=== PATIENT | male | born 1970 | race Caucasian/White ===

== ENCOUNTER 2017-11-30 15:43 | Emergency (ER) | payer OTHER ==
[2017-11-30 16:55] VITALS: BP 122/73
--- NOTE | 2017-11-30 17:44 | RAD ---
INDICATION: Right rib pain COMPARISON: None TECHNIQUE: Multiple views of the ribs were obtained. FINDINGS: Bones: There is no evidence of acute rib fracture. LUNGS: The lungs are clear. There is no pneumothorax. Pleural spaces: There is no evidence of hemothorax. Other: None IMPRESSION: NEGATIVE EXAMINATION.
--- NOTE | 2017-11-30 18:15 | UC ---
UC General HPI - HPI Summary HPI Summary: 11/26/17, PT COUGHED HARD AND FELT A POP IN HIS R RIBS. HE NOTES THE AREA TO BE SORE AND A LITTLE SWOLLEN. NO SOB, FEVER. DENIES ABDOMINAL PAIN. - History of Current Complaint Hx Obtained From: Patient, Family/Tentering Machine Off Bearer Onset/Duration: Sudden Onset Timing: Constant Pain Intensity: 4 Aggravating: MOVEMENT AND COUGH Alleviating: BY SPLINTING Associated Signs & Symptoms: Negative: Abdominal Pain, Anticoagulation Therapy, Fever, Hematemesis, SOB, Wheezing <Alie Alas - Last Filed: 11/30/17 18:20> <Bella Young - Last Filed: 12/01/17 07:03> - History of Current Complaint Chief Complaint: UCGeneralIllness Stated Complaint: SIDE PAIN Time Seen by Provider: 11/30/17 17:20 - Allergy/Home Medications Allergies/Adverse Reactions: Allergies Allergy/AdvReac Type Severity Reaction Status Date / Time No Known Allergies Allergy Verified 11/30/17 16:55 PMH/Surg Hx/FS Hx/Imm Hx - Additional Past Medical History Additional PMH: Healthy Previously Healthy: Yes - Surgical History Surgical History: None - Family History Known Family History: Positive: None Negative: Diabetes - Social History Occupation: Employed Full-time Lives: With Family Alcohol Use: None Substance Use Type: None Smoking Status (MU): Heavy Every Day Tobacco Smoker Type: Cigarettes Amount Used/How Often: 1 1/2 ppd <Alie Alas - Last Filed: 11/30/17 18:20> Review of Systems Constitutional: Negative Skin: Negative Eyes: Negative ENT: Negative Respiratory: Other - pain R ribs Cardiovascular: Negative Gastrointestinal: Negative Genitourinary: Negative Motor: Negative Neurovascular: Negative Musculoskeletal: Negative Neurological: Negative Psychological: Negative Is Patient Immunocompromised?: No All Other Systems Reviewed And Are Negative: Yes <Alie Alas - Last Filed: 11/30/17 18:20> Physical Exam Triage Information Reviewed: Yes Appearance: Well-Appearing Vital Signs: Initial Vital Signs Temp 97.4 F 11/30/17 16:47 Pulse 65 11/30/17 16:47 Resp 16 11/30/17 16:47 BP 122/73 11/30/17 16:47 Pulse Ox 98 11/30/17 16:47 Vital Signs Reviewed: Yes Eye Exam: Normal ENT: Positive: Normal ENT inspection Neck: Positive: Supple, Nontender, No Lymphadenopathy Respiratory: Positive: Normal breath sounds, No respiratory distress, Other: - R side of anterior lateral chest with mild swelling and tenderness but no instability. Cardiovascular: Positive: RRR, No Murmur Abdomen Description: Positive: Nontender, No Organomegaly, Soft Bowel Sounds: Positive: Present Neurological: Positive: Alert Psychological: Positive: Normal Response To Family, Age Appropriate Behavior Skin Exam: Normal Skin: Negative: rashes <Alie Alas - Last Filed: 11/30/17 18:20> Vital Signs: Initial Vital Signs Temp 97.4 F 11/30/17 16:47 Pulse 65 11/30/17 16:47 Resp 16 11/30/17 16:47 BP 122/73 11/30/17 16:47 Pulse Ox 98 11/30/17 16:47 <Bella Young - Last Filed: 12/01/17 07:03> Diagnostics - Radiology No standard instances Xray Interpretation: No Acute Changes Radiology Interpretation Completed By: Radiologist <Alie Alas - Last Filed: 11/30/17 18:20> Course/Dx - Course Course Of Treatment: no fx's or ptx. exam c/w chest wall mm strain. will tx nsaid and close f/u - Differential Dx - Multi-Symptom Provider Diagnoses: R chestwall strain/pain <Alie Alas - Last Filed: 11/30/17 18:20> Discharge <Alie Alas - Last Filed: 11/30/17 18:20> <Bella Young - Last Filed: 12/01/17 07:03> - Discharge Plan Condition: Stable Disposition: HOME Prescriptions: Ibuprofen TAB* [Motrin TAB* 800 MG] 800 mg PO Q8H 5 Days #15 tab Patient Education Materials: Muscle Strain (DC), Chest Wall Pain (ED) Referrals: MARTA Baum [Primary Care Provider] - 5 Days Additional Instructions: SPLINT AND DEEP BREATHE/COUGH 4 X'S DAILY AND NEEDED. Attestation Statement User Type: Provider - I was available for consult. This patient was seen by the ANA. The patient was not presented to, seen by, or examined by me. Curtis <Bella Young - Last Filed: 12/01/17 07:03>
== END 2017-11-30 18:25 | disposition home or self-care (01) ==
LOC: UCCORT 15:43
DX: S29.011A Strain of muscle and tendon of front wall of thorax, initial encounter (principal); X50.0XXA Overexertion from strenuous movement or load, initial encounter; Y93.89 Activity, other specified; Y92.9 Unspecified place or not applicable; F17.210 Nicotine dependence, cigarettes, uncomplicated
CPT/HCPCS: 99212; G0463

== ENCOUNTER 2018-01-17 02:20 | Observation (INO) | payer OTHER ==
[2018-01-17] MEDS ORDERED: HYDROmorphone INJ* 2 MG/ML CARPUJECT SYRINGE IV SLOW PU ONE ×2 (03:03→05:08)
[2018-01-17] MEDS ORDERED: Metoclopramide IV* 5 MG/ML 2 ML VIAL IV SLOW PU ONE (03:04)
[2018-01-17 03:22] LABS: Hematocrit 43 % (42-52); Mean Corpuscular HGB Conc 33 g/dl (31-36); Mean Corpuscular Hemoglobin 28 pg (27-31); Mean Corpuscular Volume 86 fL (80-94); Mean Platelet Volume 8.5 um3 (7.4-10.4); Platelet Count 340 10^3/ul (150-450); Red Blood Count 4.95 10^6/ul (4.0-5.4); Red Cell Distribution Width 14 % (10.5-15); White Blood Count 21.1 10^3/ul (3.5-10.8)
[2018-01-17 03:29] LABS: ABS Basophils 0.1 10^3/ul (0-0.2); ABS Eosinophils 0.8 10^3/ul (0-0.6); ABS Lymphocytes 2.1 10^3/ul (1.0-4.8); ABS Monocytes 1.8 10^3/ul (0-0.8); ABS Neutrophils 16.4 10^3/ul (1.5-7.7)
[2018-01-17 03:30] LABS: INR 1.16 (0.77-1.02)
[2018-01-17 03:37] LABS: EGFR Non-African American 92.8 (>60)
[2018-01-17] MEDS ORDERED: Iohexol 300* (CONTRAST) 10 ML SDV IV ONE (03:39)
[2018-01-17 03:50] LABS: ABS Nucleated RBC 0 10^3/ul; Eosinophil % 3.7 % (0-6); Nucleated Red Blood Cells % 0
[2018-01-17] MEDS ORDERED: NS 0.9% 1000 ML* 1,000 ML IV ONE (04:52)
--- NOTE | 2018-01-17 07:06 | RAD ---
HISTORY: Abdominal pain, liver cancer COMPARISONS: None TECHNIQUE: Multiple contiguous axial CT scans were obtained of the chest, abdomen, and pelvis after the administration of intravenous contrast. Coronal and sagittal multiplanar reformations are submitted for review.. FINDINGS: CHEST NECK AND THYROID: The lower neck and thyroid are unremarkable. CHEST WALL: There is no lower cervical, axillary, or supraclavicular lymphadenopathy by size criteria. HEART AND PERICARDIUM: The heart is unremarkable. AORTA AND PULMONARY VASCULATURE: There is an aberrant right subclavian artery. MEDIASTINUM: There are right paratracheal subcarinal lymph nodes measuring up to 1.2 cm in short axis. DENNYS: There is no hilar lymphadenopathy by size criteria. AIRWAY AND ESOPHAGUS: The airway is unremarkable, without endobronchial filling defect. The esophagus is grossly normal. LUNG PARENCHYMA: There are multiple pulmonary parenchymal nodules measuring up to 0.4 cm in size. PLEURA: No pleural abnormalities are noted. BONES AND SOFT TISSUES: There is an osteolytic lesion of the T11 vertebral body. There is no loss of vertebral body height. There is no appreciable epidural extension of tumor. There is fracture of the fourth rib on the right ABDOMEN/PELVIS: LIVER: There are multiple low-attenuation hepatic parenchymal lesions diffusely throughout both lobes. There is a confluent lesion measuring up to 8.8 cm in size of the right lobe of liver. BILE DUCTS: There is no intrahepatic or extrahepatic biliary dilatation. GALLBLADDER: The gallbladder is incompletely distended PANCREAS: The pancreas is normal, without mass or ductal dilatation. SPLEEN: Normal in size and appearance. UPPER GI TRACT: Evaluation of the gastrointestinal tract is limited by incomplete gastric distention. The upper GI tract is unremarkable. SMALL BOWEL & MESENTERY: The small bowel is normal in contour, course, and caliber. There is no obstruction or dilatation. COLON: The colon is normal in contour, course, caliber. There is no pericolonic inflammatory change. ADRENALS: Normal bilaterally. KIDNEYS: The kidneys are normal in shape, size, contour, and axis. There is no hydronephrosis or nephrolithiasis. BLADDER: The bladder is smooth in contour. PELVIC ORGANS: The prostate is diffusely enlarged. The seminal vesicles are symmetric. AORTA: The aorta is normal. IVC: Unremarkable LYMPH NODES: There is a centrally necrotic portacaval lymph node measuring 2.3 cm in short axis. There are multiple periaortic and aortocaval lymph nodes measuring less than 1 cm in short axis. There is a 1.9 cm short axis right iliac chain lymph node ABDOMINAL WALL: There is no evidence for abdominal wall hernia. BONES AND SOFT TISSUES: There is an osteolytic lesion of L5 with minimal depression of the superior endplate. There are scattered small osteolytic lesions of the lumbar spine. There is a sclerotic lesion of the left acetabulum. OTHER: None IMPRESSION: 1. THERE ARE MULTIPLE HEPATIC PARENCHYMAL LESIONS CONSISTENT WITH NEOPLASM. THERE IS ASSOCIATED ABDOMINAL LYMPHADENOPATHY CONSISTENT WITH METASTATIC DISEASE. 2. THERE IS MEDIASTINAL LYMPHADENOPATHY, ALSO CONCERNING FOR METASTATIC DISEASE. 3. THERE ARE MULTIPLE LYTIC BONE LESIONS, INCLUDING OF L5 WITH MILD LOSS OF VERTEBRAL BODY HEIGHT PATHOLOGIC COMPRESSION FRACTURE. THERE IS NO OSSEOUS RETROPULSION. 4. THERE IS A RIGHT FOURTH RIB FRACTURE. THE DIFFERENTIAL INCLUDES PATHOLOGY FRACTURE. 5. THERE ARE MULTIPLE SMALL LUNG NODULES, CONCERNING FOR METASTATIC DISEASE GIVEN THE HISTORY OF KIDNEY.
[2018-01-17] MEDS ORDERED: Senna TAB PO PRN (07:41)
[2018-01-17] MEDS ORDERED: Magnesium Hydroxide LIQ* 30 ML UDC PO PRN (07:41)
[2018-01-17] MEDS ORDERED: Morphine INJ* 4 MG/ML 1 ML SYRINGE (NEW SYRINGE VERSION) IV PRN (07:41)
[2018-01-17] MEDS ORDERED: fentaNYL PATCH 12 MCG/HR TRANSDERM SCH (08:00)
[2018-01-17] MEDS ORDERED: HYDROmorphone INJ* 2 MG/ML CARPUJECT SYRINGE IV SLOW PU PRN (08:02)
[2018-01-17] MEDS ORDERED: PROCHLORPERAZINE INJ 5 MG/ML 2 ML VIAL IV PRN (08:06)
[2018-01-17] MEDS: Docusate CAP* 100 MG PO SCH ×2 (09:40→20:16)
[2018-01-17] MEDS: Enoxaparin(*) 40 MG/0.4 ML SYR SUBCUT SCH (09:41)
[2018-01-17] MEDS: Polyethylene Glycol 3350* 17 GM PACKET PO SCH ×2 (09:42→20:16)
[2018-01-17] MEDS: HYDROmorphone INJ* 2 MG/ML CARPUJECT SYRINGE IV SLOW PU PRN ×4 (10:11→20:16)
[2018-01-17] MEDS: NS 0.9% 1000 ML* 1,000 ML IV SCH ×2 (10:11→20:16)
--- NOTE | 2018-01-17 10:15 | HP ---
CC: Dr. Mcgregor * HISTORY AND PHYSICAL: DATE OF ADMISSION: 01/17/18 PRIMARY CARE PROVIDER: Dr. Mcgregor. CHIEF COMPLAINT: Diffuse pain. HISTORY OF PRESENT ILLNESS: Mr. Fay is a 47-year-old male, who has had a complicated last 1-1/2 months. The patient states that in late November, he slipped and felt that he pulled something in his groin. He went to urgent care where he was diagnosed with a muscle strain. He then developed pain across his lower right ribs after having a coughing episode. He questioned whether or not he tore a muscle. A couple of weeks after his urgent care visit which appears to be on 11/30/17, he continued to have severe diffuse pain. At that time, he saw Dr. Mcgregor where he also complained of testicular pain. At that point, he got ultrasound of the testicles, which reportedly was okay. The patient represented to Dr. Mcgregor's office and again continue to complain of diffuse pain including the abdomen. A right upper quadrant ultrasound was obtained and revealed a large mass within the liver. He was then referred to the emergency room at [facility] where he underwent a CT scan, which revealed liver masses, lymphadenopathy, and lytic lesions in his lumbar spine. He was also ordered a liver biopsy. This was performed. The patient states that the mass in the liver was felt to be metastatic and not the primary. 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 This was not performed where he was sent for a CT of the chest. The patient states overall he feels that he was bounced around at [facility] and was not happy overall with the care he was receiving there. He at one point was recommended to be admitted to the [facility]; however, he did not feel comfortable with this and therefore did not get admitted. The patient now presents to [facility] today due to diffuse severe pain and inability to ambulate without taking large amounts of morphine prior to getting up and to establish care with Oncology here. PAST MEDICAL HISTORY: None. PAST SURGICAL HISTORY: None. MEDICATIONS: 1. Morphine IR 15 mg p.o. q.4 hours p.r.n. pain (the patient states he has been taking more than what is prescribed). 2. Prednisone 20 mg p.o. daily (the patient states he took this one time as his primary indicated he could take if he wanted). 3. Colace 100 mg p.o. daily. ALLERGIES: None. FAMILY HISTORY: Mom is living. She is 70 and healthy, though she did have a hysterectomy for what he says is abnormal uterine bleeding. Dad is also living , he is 70 and has had hyperparathyroidism, status post parathyroidectomy. The patient also has 1 younger brother who has a history of hyperparathyroidism. SOCIAL HISTORY: The patient is a current smoker of one and half packs per day. He states he has been smoking for the last 23 years. He denies any alcohol use. He does admit to occasional marijuana use. He works at [employer]. He states his last job was approximately a month and half ago. He is . He has 5 children. He indicates that his , Alysha Fay would be his healthcare proxy. REVIEW OF SYSTEMS: The patient denies any fevers, though does state that he will develop sweats after taking the morphine and in addition wakes up with drenching night sweats. He states his appetite has been poor, though some times when he does feel hungry, he tries to eat and he just cannot. He believes he lost 15 pounds in the last 3 to 4 weeks. He admits to musculoskeletal chest pain. He notes that there is a small lump just to the left of the mid sternum and when this is touched, he has shooting pain across the left side of his chest. He denies any palpitations. He denies edema. He denies any cough or shortness of breath more than usual. He does admit to nausea. He has continuous abdominal pain, it has been going on for the last couple of months, but it just progressively getting worse. He does state that he is constipated and that his last bowel movement was approximately 2 weeks ago. He denies any hematuria. He does admit to dysuria. He admits generalized weakness really related to pain. No sudden changes in vision. No dysphagia. He hurts all over. He has no rashes. He does state that he is becoming depressed about the degree of pain that he is having. PHYSICAL EXAMINATION GENERAL: The patient is a well-developed middle-aged male, seen lying in a stretcher, in no acute distress. VITAL SIGNS: Blood pressure 118/72, pulse 79, respirations 16, temp 98, O2 sat 98% on room air. HEENT: Pupils are equal and round. Extraocular muscles are intact. Oropharynx is clear. Oral mucosa is dry. There is no submandibular or cervical adenopathy. There is a small firm left supraclavicular lymph node noted. Thyroid is not enlarged. No thyroid nodule is noted. PULMONARY: Lungs are clear to auscultation anteriorly and at the lateral bases. CARDIAC: Normal S1, S2. Regular rate and rhythm. I do not appreciate any murmurs. There is no lower extremity edema. ABDOMEN: Bowel sounds present. Abdomen is soft, nontender, nondistended. I questioned mild hepatomegaly. MUSCULOSKELETAL: There is no cyanosis or clubbing of the digits. Range of motion is limited due to pain. SKIN: Warm and dry. There are no rashes. NEUROLOGIC: Cranial nerves II through XII are grossly intact. Sensation is intact to light touch throughout. Strength again is limited due to pain. PSYCH: The patient is alert. He is oriented x3. Affect appears appropriate. DIAGNOSTIC STUDIES/LAB DATA: WBC 21.1, hemoglobin 14.0, hematocrit 43, platelets 340. INR 1.16. Sodium 138, potassium 4.0, chloride 95, CO2 36, BUN 23, creatinine 0.88, glucose 141, lactic acid 1.4, calcium 9.9, magnesium 2.4. Bilirubin 0.5, AST 29, ALT 41, alk phos 248. CRP 80.36. Albumin 3.8. Amylase 13 and lipase less than 10. CT chest, abdomen, and pelvis, there are multiple hepatic parenchymal lesions consistent with neoplasm. There is associated abdominal lymphadenopathy consistent with metastatic disease. There is mediastinal lymphadenopathy also concerning for metastatic disease. There are multiple lytic bone lesions including of L5 with mild loss of vertebral body height. Pathologic compression fracture is likely. There is no osseous retropulsion. There is a right 4th rib fracture. The differential includes a pathologic fracture. There are multiple small lung nodules concerning for metastatic disease given the history. ASSESSMENT AND PLAN: Mr. Fay is an unfortunate 47-year-old male, who over the last 1-1/2 months has noted diffuse pain all over with supraclavicular adenopathy, multiple liver lesions, adenopathy within the chest and abdomen and lytic bone lesions consistent with metastatic disease of unclear primary, who now presents to the emergency room with complaints of severe diffuse pain. 1. Pain. At this point, our goal should be to improve pain management for this patient. I will start him on a fentanyl patch 12 mcg per hour. In addition, the patient will have Dilaudid 1 mg IV q.3 hours p.r.n. severe pain. Depending on how he does with this regimen, we can consider pain management consult if this does not work for him. 2. Diffusely metastatic cancer. The patient is in the midst of a workup for the primary of this cancer. Again, he was not happy with the care he was receiving in [facility] and therefore states he would like to establish with Oncology here in [place]. The patient will be seen today by Dr. Rebolledo whom I have already consulted. We will await further recommendations of any additional testing that may be needed at this time. 3. Leukocytosis. The patient does have a significant leukocytosis; however, he is not giving any history of infection other than the sweats, which I think could be attributed to his cancer. For now, we will monitor for other clear signs of infection. Urinalysis has been ordered and should be obtained as he does complain of mild dysuria. 4. DVT prophylaxis. According to the Adult Thrombosis Prophylaxis Risk Factor Assessment Guide, the patient has a total risk factor score of 4, making him high risk. I will start Lovenox 40 mg subcutaneous daily as DVT prophylaxis. 5. Code status is full. TIME SPENT: Sixty-five minutes was spent admitting this patient. [id number]/[facility] #: [id number] MTDD
[2018-01-17] MEDS: Ondansetron INJ* 2 MG/ML VIAL IV PRN (14:15)
[2018-01-17] MEDS ORDERED: Ketorolac INJ* 30 MG/ML 1 ML VIAL IV PUSH ONE (17:06)
[2018-01-17] MEDS ORDERED: fentaNYL PATCH 25 MCG/HR TRANSDERM SCH (19:26)
[2018-01-17] MEDS ORDERED: HYDROmorphone INJ* 2 MG/ML CARPUJECT SYRINGE ONE (19:39)
[2018-01-17] MEDS ORDERED: Calcium Carbonate CHEW TAB* 500 MG (TUMS) PO ONE (22:20)
--- NOTE | 2018-01-18 00:24 | CONS ---
CONSULTATION REPORT: DATE OF CONSULT: 01/17/18 REFERRING PHYSICIAN: Dr. Garrett. GI: Dr. Bernardo Mary. REASON FOR CONSULT: Liver lesions. HISTORY OF PRESENT ILLNESS: A 47-year-old male who has a longstanding history of GERD. About a year and a half to 2 years ago he started to develop back pain. He describes pain in the lower back radiating to his groin. It was severe enough that he cut back on how much he was working. 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 In November, he was walking with his and she almost fell. He reached over to balance her and then felt a severe pain in his lower back radiating down to his groin. That started a period of very severe back and abdominal pain that persists to this day. He initially went to see [facility] in [place]. He was sent for an ultrasound of the testicle on the left that was negative. He had followup and was sent for right upper quadrant ultrasound. He went for the test on 12/30/17 and then was called back before making it home from the study and told to have a CT scan done. Because insurance denying CT, he went to the emergency room. CT scan was done in [facility] [facility] and showed multiple liver lesions, the large is approximately 9 cm, there was extensive retroperitoneal lymphadenopathy including a fairly large node, 3 cm just above the head of the pancreas, multiple bone lesions including lumbar, thoracic and pelvic lesions with some loss of vertebral height in the lumbar spine and thoracic vertebral body nearly completely replaced with tumor. There were no lung lesions or nodules. He recently called to the emergency room twice over the last several weeks and had a referral to Dr. Mary who recommended an EGD, which is scheduled for tomorrow. He saw Dr. Turcios, who recommended CT-guided biopsy of the liver and surgical biopsy of the supraclavicular lymph node. CT biopsy of the liver was done. It showed a metastatic carcinoma with an extensive necrosis and markers that were CD7 positive, CAT3 positive and CD20, CDX-2, TTF-1 D2-40, p63, PSA, PSMA, ER/SC negative. Pathologic diagnosis was upper GI primary, but could not rule out urothelial cancer. CK19 and NKX 3.1 were pending at the time of the final report. When he went to see the surgeon for biopsy of his supraclavicular lymph node, he was referred to the emergency room with chest pain. It was asked that he be admitted at that time and he refused and ultimately left against advice. He has had longstanding difficulties with [facility] and he has had family members with bad experiences, so after the pain was increasing over the past several days he came to the [facility] emergency room. He was seen overnight and admitted with pain control and for further evaluation. At home, he was taking morphine 50 mg q.4 hours and Motrin 600 mg a day. In the hospital, he was placed on Dilaudid 2 mg IV q.3 p.r.n. and fentanyl patch 12.5 mcg. PAST MEDICAL HISTORY: Chronic back pain. PAST SURGICAL HISTORY: None. ALLERGIES: None. FAMILY HISTORY: Some blood disease in the family and no early cancers. SOCIAL HISTORY: Lives in [place] and is self-employed. and has 5 daughters, 11 to 22 years old, no grandchildren. Smokes one and one and a half pack of cigarettes per day and does not drink alcohol. REVIEW OF SYSTEMS: General: Tired from being in pain all the time. No fevers or chills. He has lost 15 pounds. HEENT: Negative. Swollen glands over the past year. Chest: He has chest pain over the past day and a half with a small nodule in his anterior chest wall. Cardiac: He feels his heart beating. Respiratory: Negative except for smoking history. GI: Diffuse abdominal pain that kind of stretches across his upper abdomen. He is severely constipated and reports no major bowel movement in the past 2 weeks despite taking multiple [id number] medications, he passes gas and has a small liquid stool every now and then. : He feels full at times, but urinates without difficulty. Musculo-skeletal: Severe back pain. It is difficult for him to move, even to stay on the bed is hard. No axial joint discomfort. Neurologic: Negative. Skin: Negative. PHYSICAL EXAM: Temperature 98.1, heart rate 68, respirations 20, O2 sat 92%, BP 107/72. HEENT: Mucosa moist. No lesions. He has a small left supraclavicular lymph node. Lungs: Clear to auscultation bilaterally. Heart: Regular rate and rhythm . S1 and S2. No murmurs, rubs, or gallops. Heart rate in the 80s. Abdomen: Diffuse distention. I can feel the liver and he does seem to have abdominal fullness. No rebound or guarding. Lymph Nodes: No peripheral lymph nodes except supraclavicular lymph node. Rectal exam with normal tone and empty vault. Extremities: No clubbing, cyanosis, or edema. Neurologic: Nonfocal. Alert and oriented x3 and not a good historian. DIAGNOSTIC STUDIES/LAB DATA: White count 21.1 (took steroids yesterday), hemoglobin 14.1, platelets 240,000. MCV 86. Normal coagulation studies, normal renal function. Glucose 141. Alk phos of 248, bilirubin of 0.5 and otherwise normal LFTs. ASSESSMENT/PLAN: A 47-year-old male with a carcinoma likely of upper GI primary with differential diagnosis including gastroesophageal, cholangiocarcinoma, pancreatic carcinoma, urothelial cancer. Pancreatic and/or cholangiocarcinoma is most likely. He had been scheduled for an EGD tomorrow in [place], but was admitted today for refractory pain. 1. Cancer diagnosis. We will check a CA-125 and CA 19-9 with his a.m. labs tomorrow. We will discuss with GI possibly having EGD at [facility] either during this hospitalization or soon thereafter. If EGD negative then plan MRCP or ERCP. He has an aggressive tumor based on his clinical history and I would like to get him started with chemotherapy as soon as possible, but determining the sepcific cell of origin is relevant to choosing a chemotherapy regimen. 2. Pain control. Increase fentanyl to 25 mcg tonight and then 50 mcg tomorrow , calculated dose conversion from his home morphine to 75 mcg. Continue Dilaudid 2 mg IV q.2 p.r.n. Can go home on po Dilaudid. 3. Constipation. Based on the CT scan and rectal exam, he has got an empty vault, but seems to have lot of stool in the upper large intestine. I changed his lactulose from 30 mg q.8 p.r.n. which he has not been receiving consistently to 30 mg q.8 standing at least for 2 days until he is having a bowel movement. We will change his nausea medicine from Compazine to Reglan. 4. I discussed potential referral to a tertiary center given his young age and the aggressive nature of his tumor. [facility] would be a likely candidate. We will also work on sending to [place] [id number] for his tumor. 5. He has talked about chemotherapy with other providers and says he does not want to have a port placed, that is reasonable and he seems to have good peripheral venous access. None of the initial therapies for pancreatic or cholangiocarcinoma are of significance. 6. I advised him to decrease his smoking from one and a half packs a day to less than a pack per day to start with. I will follow during the hospitalization and have close followup on discharge. [id number]/[facility] #: [id number] SUZAN
[2018-01-18] MEDS: HYDROmorphone INJ* 2 MG/ML CARPUJECT SYRINGE IV SLOW PU PRN ×3 (01:22→07:23)
[2018-01-18 04:36] LABS: Urine Appearance Turbid; Urine Blood Negative (Negative); Urine Color Amber; Urine Ketones Trace (Negative); Urine Protein Negative (Negative); Urine Specific Gravity 1.033 (1.010-1.030); Urine Urobilinogen Positive (Negative)
[2018-01-18] MEDS: NS 0.9% 1000 ML* 1,000 ML IV SCH (04:50)
[2018-01-18] MEDS ORDERED: fentaNYL Patch Check Q Shift 1 NOTE SCH (07:00)
[2018-01-18] MEDS: Ondansetron INJ* 2 MG/ML VIAL IV PRN (07:28)
[2018-01-18] MEDS ORDERED: oxyCODONE TAB* 5 MG TAB PO PRN ×3 (08:13→15:10)
--- NOTE | 2018-01-18 08:16 | PN ---
Subjective Date of Service: 01/18/18 Interval History: Pain control adequate. He had a BM last night. Objective Active Medications: Docusate Sodium (Colace Cap*) 100 mg PO BID [facility] Last Admin: 01/17/18 20:16 Dose: 100 mg Enoxaparin Sodium (Lovenox(*)) 40 mg SUBCUT Q24H [facility] Last Admin: 01/17/18 09:41 Dose: 40 mg Fentanyl (Duragesic Patch 50 Mcg/Hr*) 50 mcg TRANSDERM Q72H [facility] Hydromorphone HCl (Dilaudid Inj*) 2 mg IV SLOW PU Q2H PRN PRN Reason: PAIN Last Admin: 01/18/18 07:23 Dose: 2 mg Sodium Chloride (Ns 0.9% 1000 Ml*) 1,000 mls @ 125 mls/hr IV PER RATE [facility] Last Admin: 01/18/18 04:50 Dose: 125 mls/hr Lactulose (Lactulose*) 30 ml PO TID [facility] Stop: 01/20/18 20:59 Last Admin: 01/17/18 22:18 Dose: 30 ml Magnesium Hydroxide (Milk Of Magnesia Liq*) 30 ml PO Q4H PRN PRN Reason: CONSTIPATION Ondansetron HCl (Zofran Inj*) 4 mg IV Q6H PRN PRN Reason: NAUSEA Last Admin: 01/18/18 07:28 Dose: 4 mg Pharmacy Profile Note (Fentanyl Patch Check Q Shift) 1 note N/A 0700,1900 [facility] Last Admin: 01/18/18 07:30 Dose: 1 note Polyethylene Glycol/Electrolytes (Miralax*) 17 gm PO 0800,2100 [facility] Last Admin: 01/17/18 20:16 Dose: 17 gm Polyethylene Glycol/Electrolytes (Miralax*) 17 gm PO 0800,2100 [facility] Prochlorperazine Edisylate (Compazine Inj*) 10 mg IV Q6H PRN PRN Reason: NAUSEA/VOMITING Senna (Senokot Tab*) 1 tab PO BEDTIME PRN PRN Reason: CONSTIPATION Last Admin: 01/17/18 09:40 Dose: 1 tab Vital Signs - 8 hr 01/18/18 01/18/18 01/18/18 01:22 02:35 02:57 Temperature 98.2 F Pulse Rate 84 Respiratory 20 16 16 Rate Blood Pressure 131/86 (mmHg) O2 Sat by Pulse 95 Oximetry 01/18/18 01/18/18 01/18/18 04:50 06:20 07:23 Temperature Pulse Rate Respiratory 16 15 16 Rate Blood Pressure (mmHg) O2 Sat by Pulse Oximetry Oxygen Devices in Use Now: None Appearance: Alert, supine in bed. In good spirits. Looks comfortable at rest, some diffiuclty turning in bed. Eyes: No Scleral Icterus Abdominal: NL Sounds; No Tenderness; No Distention, No Hepatosplenomegaly, - Lymphatic: - - Firm 3 x 1.5 cm L SC node Extremities: No Edema, No Clubbing, Cyanosis, - Skin: No Rash or Ulcers, No Nodules or Sclerosis, - Neurological: Alert and Oriented x 3, NL Sensation Result Diagrams: 01/17/18 03:11 01/17/18 03:11 Assess/Plan/Problems-Billing Assessment: - Patient Problems (1) Metastatic carcinoma Status: Acute Code(s): C79.9 - SECONDARY MALIGNANT NEOPLASM OF UNSPECIFIED SITE SNOMED Code(s): 278368977 Comment: CA-125 very high. CA 19-9 pending. EGD showed erosive esohagitis, no tumor. Increased fentanyl patch to 75 mcg/hr just befor discharge. PO oxycodone 10 mg tabs 1-[address] q [address] Rebolledo. (2) Tobacco abuse Status: Acute Code(s): Z72.0 - TOBACCO USE SNOMED Code(s): 253273547 Comment: Nicotine patch ordered.
[2018-01-18] MEDS ORDERED: Nicotine PATCH 21 MG/24 HR* PATCH TRANSDERM SCH (08:30)
[2018-01-18] MEDS ORDERED: fentaNYL* 50 MCG/ML 2 ML VIAL (100 MCG VIAL) ONE (09:00)
[2018-01-18] MEDS ORDERED: fentaNYL PATCH 50 MCG/HR TRANSDERM SCH (09:00)
[2018-01-18] MEDS ORDERED: Midazolam* 1 MG/ML 10 ML VIAL (10 MG) ONE (09:00)
[2018-01-18] MEDS ORDERED: D5W 1/2 NS KCl 20 Meq 1000 ML* 1,000 ML IV SCH (09:00)
[2018-01-18] MEDS ORDERED: Metoclopramide TAB* 10 MG PO PRN (09:16)
[2018-01-18] MEDS ORDERED: Pantoprazole IV* 40 MG IV SCH (10:00)
[2018-01-18] MEDS: oxyCODONE TAB* 5 MG TAB PO PRN ×2 (10:39→13:42)
[2018-01-18] MEDS: Docusate CAP* 100 MG PO SCH (10:55)
[2018-01-18] MEDS: Polyethylene Glycol 3350* 17 GM PACKET PO SCH (10:55)
[2018-01-18] MEDS: Enoxaparin(*) 40 MG/0.4 ML SYR SUBCUT SCH (11:05)
--- NOTE | 2018-01-18 11:24 | CONS ---
AMENDED REPORT NOW INCLUDES DATE OF CONSULT - ESIGNED BEFORE ADJUSTMENTS CC: Dr. Froy Rebolledo; Dr. Yaya Mcgregor * GASTROENTEROLOGY CONSULTATION REPORT: DATE OF CONSULT: 01/18/18 REFERRING PHYSICIAN: Dr. Froy Rebolledo. HISTORY OF PRESENT ILLNESS: Thank you for asking me to see Mr. Fay. As you know, he is an unfortunate 47-year-old male who has been having issues with abdominal and back pain over the past year and a half. The patient underwent recent CAT scan in [facility] which showed multiple liver lesions, largest of which measured 9 cm with retroperitoneal lymphadenopathy, large node just above the head of the pancreas and multiple bony lesions. The patient was scheduled to undergo outpatient upper endoscopy today and CT-guided biopsy of the liver. Biopsy of the liver at [facility] revealed metastatic carcinoma and markers most consistent with upper GI primary versus pancreatic or cholangiocarcinoma. The patient has been placed on pain medications here in the hospital including Dilaudid and fentanyl patch. The patient decided to come to [facility] for further care. He has been seen by Dr. Rebolledo in consultation. The patient describes right-sided abdominal pain especially after meals. He also has significant back pain. CA 19-9 is pending. The patient does have a long history of acid reflux symptoms. PAST MEDICAL HISTORY: None. MEDICATIONS: At home, are none. ALLERGIES: No known drug allergies. FAMILY HISTORY: Noncontributory. SOCIAL HISTORY: The patient is . He does smoke. No alcohol abuse. REVIEW OF SYSTEMS: A 10-point review of systems is performed and is otherwise negative. PHYSICAL EXAM: Mr. Fay is a 47-year-old male. Temperature is 98, heart rate of 74, blood pressure 137/75. HEENT Exam: There is no scleral icterus. Heart: Regular rate and rhythm. Lungs are clear. Abdomen is soft. There is some tenderness in the right mid to lower abdomen. Bowel sounds are present. There is no distention. Rectal exam is deferred. Skin is warm and dry. Neuro Exam: Grossly intact. Alert and oriented x3. LABORATORY DATA: Pertinent laboratory studies include a white blood count of 21 , hematocrit of 43. INR of 1. CA 125 of 683. Lipase is normal. Liver function tests are normal with exception of an alkaline phosphatase which is 248. C-reactive protein is 80. Albumin is 3.8. IMPRESSION: Mr. Fay has wide-spread metastatic disease involving the liver , retroperitoneal lymphadenopathy, and bony lesions. Etiology of the metastatic cancer is not clear at this time, but biopsy of the one of the liver lesions did suggest upper gastrointestinal pathology, which would include esophagus, stomach, pancreatic, or cholangiocarcinoma. RECOMMENDATIONS: I have discussed the case with Dr. Rebolledo. Upper endoscopy will take place this morning to rule in or rule out the esophagus and the stomach as the source of metastatic disease. Further recommendations based on the results of that study. [id number]/[facility] #: [id number] MTDD
[2018-01-18 11:34] VITALS: BP 134/79
--- NOTE | 2018-01-18 13:53 | PRO ---
CC: Dr. Yaya Mcgregor; Froy Rebolledo MD GASTROENTEROLOGY PROCEDURE NOTE: DATE OF PROCEDURE: 01/18/18 REFERRING PHYSICIAN: Dr. Froy Rebolledo. PROCEDURE: Esophagogastroduodenoscopy with biopsies. PREOPERATIVE DIAGNOSES: Metastatic cancer of unknown primary with markers of liver biopsy suggestive of upper GI tract pathology for a primary. The patient does have a longstanding history of acid ref lux disease. POSTOPERATIVE DIAGNOSES: 1. Severe erosive esophagitis of the distal esophagus. No mass is noted. The GE junction is at 45 cm. There are some linear ulcers extending proximally. It is unclear as to whether the distal esoph susannah has Cordova's as the proximal and mid esophagus have what appears to be a denuded mucosa. Photo graph obtained. 2. Diffuse gastritis without erosion, mass or ulceration. 3. Mild duodenitis without ulceration. PROCEDURE MEDICATIONS: 1. Versed 7 mg IV. 2. Fentanyl 100 mcg IV. INSTRUMENT: GF-190 Olympus high-definition gastroscope. DESCRIPTION OF PROCEDURE: Informed consent was obtained prior to performing this procedure. The ins trument was introduced into the mouth and passed through the cervical esophagus under direct visualiz ation. The instrument was then advanced down the esophagus. In the proximal and mid esophagus, the lining appeared somewhat denuded and actually was shed with irrigation. In the distal esophagus, at the level of the GE junction, there was severe erosive esophagitis. Because of the denuded appearanc e of the proximal and mid and somewhat distal esophagus, it is unclear as to whether the distal esoph susannah actually had Cordova's. Multiple biopsies were obtained. The scope was then passed through the gastric cardia, fundus, body and the antrum. There was evidence of mild diffuse gastritis without e rosion, ulceration or mass. The scope was passed through the pylorus and duodenal bulb and descendin g duodenum, both of which were normal. The cardia was visualized in a retroflex manner and no abnorm alities were noted. The instrument was withdrawn from the patient. The patient tolerated the proced ure well and there were no complications. RECOMMENDATIONS: I will begin the patient on Protonix 40 mg IV daily. We will set the patient up fo r MRCP for hopeful diagnostic purposes. [id number]/[facility] #: [id number]
--- NOTE | 2018-01-18 14:48 | PN ---
Progress Note - Progress Note Date of Service: 01/18/18 SOAP: Subjective: [This is a 47 yo male with recent dx of metastatic carcinoma of unclear primary , admitted for pain control. Dr Rebolledo saw the patient in consultation yesterday evening. Pathology completed at [facility] was suggestive of upper GI in origin. EGD completed this morning which did not demonstrate presence of a mass. MRCP pending for this afternoon. Patient reports his pain is under much better control this am. 50mcg Fentanyl patch placed, using oxycodone for short acting relief. He had a very large BM overnight. Mild nausea this am.] Objective: [ Docusate Sodium (Colace Cap*) 100 mg PO BID [facility] Last Admin: 01/18/18 10:55 Dose: Not Given Enoxaparin Sodium (Lovenox(*)) 40 mg SUBCUT Q24H [facility] Last Admin: 01/18/18 11:05 Dose: 40 mg Fentanyl (Duragesic Patch 50 Mcg/Hr*) 50 mcg TRANSDERM Q72H [facility] Last Admin: 01/18/18 08:26 Dose: 50 mcg Hydromorphone HCl (Dilaudid Inj*) 2 mg IV SLOW PU Q2H PRN PRN Reason: PAIN Last Admin: 01/18/18 07:23 Dose: 2 mg Potassium Chloride/Dextrose (D5w 1/2 Ns Kcl 20 Meq 1000 Ml*) 1,000 mls @ 100 mls/hr IV PER RATE [facility] Last Admin: 01/18/18 10:29 Dose: 100 mls/hr Lactulose (Lactulose*) 30 ml PO TID [facility] Stop: 01/20/18 20:59 Last Admin: 01/18/18 12:07 Dose: Not Given Magnesium Hydroxide (Milk Of Magnesia Liq*) 30 ml PO Q4H PRN PRN Reason: CONSTIPATION Metoclopramide HCl (Reglan Tab*) 10 mg PO Q8H PRN PRN Reason: NAUSEA Nicotine (Nicotine Patch 21 Mg/24 Hr*) 1 patch TRANSDERM DAILY@0800 [facility] Last Admin: 01/18/18 11:08 Dose: Not Given Omeprazole (Prilosec Cap*) 20 mg PO BID [facility] Ondansetron HCl (Zofran Inj*) 4 mg IV Q6H PRN PRN Reason: NAUSEA Last Admin: 01/18/18 07:28 Dose: 4 mg Oxycodone HCl (Roxycodone Tab*) 5 mg PO Q3H PRN PRN Reason: PAIN - MODERATE TO SEVERE Oxycodone HCl (Roxycodone Tab*) 10 mg PO Q3H PRN PRN Reason: PAIN - SEVERE Last Admin: 01/18/18 13:42 Dose: 10 mg Pharmacy Profile Note (Fentanyl Patch Check Q Shift) 1 note N/A 0700,1900 [facility] Last Admin: 01/18/18 07:30 Dose: 1 note Pharmacy Profile Note (Nicotine Patch Removal Note*) 1 note PATCH OFF 2099 [facility] Polyethylene Glycol/Electrolytes (Miralax*) 17 gm PO 0800,2100 [facility] Last Admin: 01/18/18 10:55 Dose: Not Given Prochlorperazine Edisylate (Compazine Inj*) 10 mg IV Q6H PRN PRN Reason: NAUSEA/VOMITING Senna (Senokot Tab*) 1 tab PO BEDTIME PRN PRN Reason: CONSTIPATION Last Admin: 01/17/18 09:40 Dose: 1 tab Laboratory Results - last 24 hr 01/17/18 01/18/18 22:02 01:25 CA 125 Antigen 683.2 H Urine Color Lian Urine Appearance Turbid Urine pH 5.0 Ur Specific [place] 1.033 H Urine Protein Negative Urine Ketones Trace A Urine Blood Negative Urine Nitrate Negative Urine Bilirubin Negative Urine Urobilinogen Positive A Ur Leukocyte Esterase Negative Urine Glucose Negative Vital Signs: Temp Pulse Resp BP Pulse Ox 97.3 F 75 16 134/79 95 01/18/18 11:35 01/18/18 11:35 01/18/18 13:42 01/18/18 11:35 01/18/18 11:35 Exam: Gen: Well appearing, smiling and very pleasant. Accompanied by his HEENT: MMM CV: RRR, no m/r/g Resp: CTA, no w/c/r Abd: soft, diffuse TTP Ext: no edema Skin: No rashes] Assessment: [47 yo male with new diagnosis of metastatic disease of unclear primary. Pathology suggestive of upper GI source or urothelial, upper GI more likely. EGD did not demonstrate a mass, but demonstrated erosive esophagitis. MRCP pending to help differentiate pancreatic v cholangiocarcinoma.] Plan: [- Recommend PPI for esophagitis noted on EGD - MRCP pending - Cont fentanyl at 50 mcg daily with prn oxycodone - Cont laxatives to avoid further constipation Dispo: Anticipate discharge later today following MRCP now that pain and constipation have been effectively treated. Follow up with Dr Rebolledo scheduled for early next week with plan to initiate treatment shortly. Patient does not want a port placed. Instructed patient to call the office with any questions or concerns.]
--- NOTE | 2018-01-18 15:25 | RAD ---
HISTORY: MRI clearance. COMPARISON: None. FINDINGS: Frontal and lateral views of the orbits. There is no radiopaque foreign body attributable to the orbits. The orbital rims are intact. The sinuses are clear. The zygomatic arches are normal. IMPRESSION: No radiopaque foreign body attributable to the orbits.
[2018-01-18] MEDS ORDERED: fentaNYL PATCH 75 MCG/HR* 75 MCG TRANSDERM SCH (16:00)
--- NOTE | 2018-01-18 16:44 | RAD ---
INDICATION: Metastatic cancer with suspected pancreatic or cholangiocarcinoma. Comparison: January 17, 2018 CT Technique: MYFX [place] 1.5 Heather [id number] with GEM suite. Noncontrast magnetic resonance cholangiopancreatography. Report: Motion artifact limits image quality. Negative for intra or extrahepatic biliary dilatation. No intrinsic lesion within the common bile duct or extrinsic lesion resulting in compression of the duct. Partially decompressed gallbladder. Small volume of pericholecystic fluid is nonspecific given diffuse small volume of perihepatic fluid. Innumerable focal hepatic lesions corresponding with recent CT finding. Enlarged portal caval lymph node measuring up to 2.6 cm as on the prior CT. IMPRESSION: 1. Limited exam due to motion artifact. Negative for biliary dilatation or visualized intrinsic or common bile duct periductal mass lesion. 2. Enlarged portal caval lymph node. 3. Innumerable focal hepatic lesions corresponding with recent CT finding. Consider ultrasound-guided fine-needle aspiration for histopathologic assessment.
[2018-01-18] MEDS ORDERED: Omeprazole CAP* 20 MG PO SCH (17:00)
--- NOTE | 2018-01-18 17:12 | PN ---
"Progress Note - Progress Note Date of Service: 01/18/18 Note: This report was requested by: Masood Song | Reference #: [id number] Others' Prescriptions Patient Name: Jonathan Fay Date: 1970 Address: [address] [place] [address] Sex: Male Rx Written Rx Dispensed Drug Quantity Days Supply Prescriber Name 01/07/2018 01/10/2018 morphine sulfate ir 15 mg tab 90 15 [place] 01/07/2018 01/07/2018 morphine sulfate ir 15 mg tab 21 7 Yaya Mcgregor 01/03/2018 01/03/2018 hydrocodone-acetaminophen 5-325 mg tablet 50 9 [place] vieira Fredis Patient Name: Jonathan Fay Date: 1970 Address: [address] [place] [address] Sex: Male Rx Written Rx Dispensed Drug Quantity Days Supply Prescriber Name 12/30/2017 12/30/2017 hydrocodone-acetaminophen 5-325 mg tablet 28 7 Shonna Harper (JUANA) 12/30/2017 12/30/2017 lorazepam 0.5 mg tablet 15 5 Shonna Harper)"
[2018-01-18] MEDS ORDERED: Polyethylene Glycol 3350* 17 GM PACKET PO SCH (21:00)
[2018-01-18] MEDS ORDERED: Nicotine Patch Removal NOTE PATCH OFF SCH (21:00)
--- NOTE | 2018-01-19 02:07 | DS ---
CC: Viry Ellison MD; Dr. Rebolledo * DISCHARGE SUMMARY: DATE OF ADMISSION: DATE OF DISCHARGE: 01/18/18 HISTORY OF PRESENT ILLNESS: This 47-year-old man presented with extensive pain throughout his body. He was found to have metastatic adenocarcinoma. He had bony and lymph node metastases. He underwent an EGD, which did not show any tumor, but did show erosive esophagitis. He had an MRCP, did not show biliary dilatation or any bile duct or periductal mass lesion. There was an enlarged portacaval lymph node. There were numerable focal hepatic lesions corresponding with recent CT scan finding. The patient had his pain medication titrated. He may need further up with titrations of his pain medication. He was treated for constipation as well. I think he has a good understanding of the need. He used laxatives every day while taking opioids. The patient was seen in consultation by Dr. Rebolledo and will follow up with Dr. Rebolledo in his office on Wednesday to plan a course of chemotherapy. FINAL DIAGNOSES: 1. Metastatic adenocarcinoma with liver, bone and soft tissue metastases. 2. Erosive esophagitis. 3. Tobacco use disorder. DISCHARGE MEDICATIONS: 1. Fentanyl patch 75 mcg per hour change every 3 days. 2. Nicotine patch 21 mg per hour change daily. 3. Omeprazole 20 mg b.i.d. 4. Polyethylene glycol 34 g b.i.d. 5. Oxycodone 10 mg 1 or 2 tablets every 4 hours p.r.n. [id number]/[facility] #: [id number] MTDD
--- NOTE | 2018-02-16 06:01 | ED ---
Homar Kapoor Rebecca, scribed for Juno Burgess MD on 01/17/18 at 0245 . Complex/Multi-Sys Presentation - HPI Summary HPI Summary: Pt is a 47 y/o M who presents to ED c/o acute on chronic diffuse abdominal pain. Pt was given a diagnosis of liver CA on December 30 (about 2.5 weeks ago) after experiencing bloating and abdominal pain. A biopsy was done on January 03 and he has seen an oncologist once thus far with his next appointment tomorrow at 1000. Pain is currently severe, ranked 10/10 and radiates into the back, described as a sharp pain. Has been taking 15 mg morphine sulfate every 4 hours without relief. Additionally c/o nausea. Denies vomiting. Reports his urine is light yellow. PCP is Dr. Mcgregor, oncologist is Dr. Fong. Follow-up care has been through [facility]. - History Of Current Complaint Chief Complaint: EDGeneral Time Seen by Provider: 01/17/18 02:37 Hx Obtained From: Patient Onset/Duration: Still Present Severity Currently: Severe - 10/10 Location: Pain At: - Diffuse abdomen, Radiates To: - Back Character: Sharp Aggravating Factor(s): Nothing Alleviating Factor(s): Nothing Associated Signs And Symptoms: Positive: Nausea, Abdominal Pain. Negative: Vomiting - Allergies/Home Medications Allergies/Adverse Reactions: Allergies Allergy/AdvReac Type Severity Reaction Status Date / Time No Known Allergies Allergy Verified 01/17/18 02:33 Home Medications: Home Medications Docusate Sodium [Dok] 1 tab PO DAILY 01/17/18 [History Confirmed 01/17/18] Morphine TAB (NF) 1 tab PO Q4HR PRN 01/17/18 [History Confirmed 01/17/18] predniSONE TAB* [Deltasone TAB*] 1 tab PO DAILY 01/17/18 [History Confirmed 06/28] PMH/Surg Hx/FS Hx/Imm Hx Endocrine/Hematology History: Denies: Hx Diabetes Cardiovascular History: Denies: Hx Coronary Artery Disease Infectious Disease History: No Infectious Disease History: Denies: Traveled Outside the [place] in Last 30 Days - Family History Known Family History: Negative: Diabetes - Social History Alcohol Use: None Substance Use Type: Reports: None Smoking Status (MU): Heavy Every Day Tobacco Smoker Type: Cigarettes Amount Used/How Often: 1 1/2 ppd Review of Systems Negative: Fever Positive: Abdominal Pain, Nausea. Negative: Vomiting All Other Systems Reviewed And Are Negative: Yes Physical Exam - Summary Physical Exam Summary: VITAL SIGNS: Reviewed. GENERAL: ~Patient is a well-developed and nourished male who is lying comfortable in the stretcher. Patient is not in any acute respiratory distress. HEAD AND FACE: No signs of trauma. No ecchymosis, hematomas or skull depressions. No sinus tenderness. EYES: PERRLA, EOMI x 2, No injected conjunctiva, no nystagmus. EARS: Hearing grossly intact. Ear canals and tympanic membranes are within normal limits. MOUTH: Oropharynx within normal limits. NECK: Supple, trachea is midline, no adenopathy, no JVD, no carotid bruit, no c- spine tenderness, neck with full ROM. CHEST: Symmetric, no tenderness at palpation LUNGS: Clear to auscultation bilaterally. No wheezing or crackles. CVS: Regular rate and rhythm, S1 and S2 present, no murmurs or gallops appreciated. ABDOMEN: Soft, diffusely tender. No signs of distention. No rebound no guarding , and no masses palpated. Bowel sounds are normal. EXTREMITIES: FROM in all major joints, no edema, no cyanosis or clubbing. NEURO: Alert and oriented x 3. No acute neurological deficits. Speech is normal and follows commands. SKIN: Dry and warm Triage Information Reviewed: Yes Vital Signs On Initial Exam: Initial Vitals Temp Pulse Resp BP Pulse Ox 97.6 F 95 20 137/81 97 01/17/18 02:25 01/17/18 02:25 01/17/18 02:25 01/17/18 02:25 01/17/18 02:25 Vital Signs Reviewed: Yes Diagnostics - Vital Signs Vital Signs Temp Pulse Resp BP Pulse Ox 01/17/18 02:25 97.6 F 95 20 137/81 97 - Laboratory Result Diagrams: 01/17/18 03:11 01/17/18 03:11 Lab Statement: Any lab studies that have been ordered have been reviewed, and results considered in the medical decision making process. - CT CT Abd/Pel CT Interpretation Completed By: Radiologist - Multiple liver masses consistent with metastasis with a possible primary liver lesion. Presumed metastatic mediastinal, right hilar, periportal, portacaval, retroperitoneal, and pelvic lymphadenopathy. Multiple bone metastases with possible lumbar pathologic compression fractures, not clearly acute. Acute right fourth rib fracture is possibly pathologic. Questionable tiny lung metastases. ED physician reviewed this radiology report. Pending official report. Complex Multi-Symp Course/Dx Assessment/Plan: Pt is a 47 y/o M who presents to ED c/o acute on chronic diffuse abdominal pain. Pt was given a diagnosis of liver CA on December 30 (about 2.5 weeks ago) after experiencing bloating and abdominal pain. A biopsy was done on January 03 and he has seen an oncologist once thus far with his next appointment tomorrow at 1000. Pain is currently severe, ranked 10/10 and radiates into the back, described as a sharp pain. Has been taking 15 mg morphine sulfate every 4 hours without relief. Additionally c/o nausea. Denies vomiting. Reports his urine is light yellow. PCP is Dr. Mcgregor, oncologist is Dr. Fong. Follow-up care has been through [facility]. CT Abd/Pel findings above. Blood work was done. In the ED course, pt was given Reglan and Toradol. Discused care of pt with Dr. Thurman who accepts pt for admission. Pt will be admitted with Dx of metastatic cancer. He understands and agrees. - Diagnoses Provider Diagnoses: Metastatic cancer - Physician Notifications Discussed Care Of Patient With: Brock Thurman Time Discussed With Above Provider: 05:16 Instructed by Provider To: Other - Pt will be admitted. Discharge - Sign-Out/Discharge Documenting (check all that apply): Discharge - Admitted - Discharge Plan Condition: Fair Disposition: ADMITTED TO [facility] Referrals: Yaya Mcgregor MD [Primary Care Provider] - The documentation as recorded by the Homar espinal Rebecca accurately reflects the service I personally performed and the decisions made by me, Juno Burgess MD.
== END 2018-01-18 17:20 | disposition home or self-care (01) ==
LOC: ED 02:20 → MED 07:41
PROVIDERS: ADMIT Hospitalist; ATTEND Internal Medicine
PROC: 0DB58ZX Excision of Esophagus, Via Natural or Artificial Opening Endoscopic, Diagnostic (ICD-10-PCS; principal; 2018-01-17)
DX: K20.8 Other esophagitis (principal); K22.8 Other specified diseases of esophagus; K22.10 Ulcer of esophagus without bleeding; R59.9 Enlarged lymph nodes, unspecified; C22.7 Other specified carcinomas of liver; C79.51 Secondary malignant neoplasm of bone; C79.89 Secondary malignant neoplasm of other specified sites; D72.829 Elevated white blood cell count, unspecified; M54.5 Low back pain; G89.29 Other chronic pain; K59.00 Constipation, unspecified; K29.70 Gastritis, unspecified, without bleeding; Z72.0 Tobacco use
CPT/HCPCS: 36415; 70030; 71260; 74177; 74181; 76376; 80053; 81003; 82150; 83605; 83690; 83735; 85025; 85060; 85610; 85730; 86140; 86301; 86304; 88305; 88312; 96361; 96374; 96375; 99156; 99157; 99223; 99226; 99233; 99284; A9270-GY; G0378; J1170; J1650; J1885; J2250; J2405; J2765; J3010; Q9967

== ENCOUNTER 2018-01-19 06:18 | Emergency (ER) | payer OTHER ==
--- NOTE | 2018-01-19 07:59 | RAD ---
INDICATION: Left shoulder pain. TECHNIQUE: 4 views of the left shoulder were obtained. FINDINGS: The bones are in normal alignment. There appears to be a fracture of the acromion process which is nondisplaced and not well-defined on this study and likely pathologic. Joint spaces appear maintained. IMPRESSION: FINDINGS SUSPICIOUS FOR A NONDISPLACED PATHOLOGIC FRACTURE OF THE ACROMION PROCESS WHICH IS NOT WELL-DEFINED ON THIS STUDY. RECOMMEND A CT OF THE SHOULDER FOR FURTHER EVALUATION.
--- NOTE | 2018-01-19 09:28 | RAD ---
INDICATION: Left shoulder pain, possible pathologic fracture. COMPARISON: Comparison is made with a prior x-ray study of the left shoulder from January 19, 2018. TECHNIQUE: Contiguous axial sections were obtained of the left shoulder. Images were reconstructed in the sagittal and coronal planes. FINDINGS: There is mild soft tissue swelling adjacent to the acromion process. There is a transverse nondisplaced fracture of the acromion process through a permeative lytic lesion consistent with a pathologic fracture. This correlates with the x-ray finding. No additional lytic osseous lesions are seen. There are several small pulmonary nodules present within the visualized portion of the left lung. There is also a small left lower lobe infiltrate which is unchanged from the prior CT of the chest from January 17, 2018. IMPRESSION: 1. TRANSVERSE NONDISPLACED PATHOLOGIC FRACTURE OF THE ACROMION PROCESS. 2. MULTIPLE SMALL PULMONARY NODULES CONSISTENT WITH METASTATIC DISEASE. 3. SMALL LEFT LOWER LOBE INFILTRATE, UNCHANGED.
[2018-01-19 10:04] VITALS: BP 145/80
--- NOTE | 2018-01-20 11:58 | ED ---
Brian Kapoor Angela, scribed for Miguel Vinson MD on 01/19/18 at 0815 . Upper Extremity Pain - HPI Summary HPI Summary: This pt is a 47 y/o male, accompanied by his , presenting to [facility] c/o left shoulder pain since this morning. Pt states he was attempting to get out of bed this morning when he reached out and hear a loud pop in his left shoulder. He currently rates his pain 3 or 4 out of 10 in severity after oxycodone. His pain is aggravated with movement and alleviated with rest. Pt has been recently diagnosed with liver cancer and is currently being followed up by Dr. Rebolledo, oncologist. Per , pt was admitted to [facility] for severe pain and was discharged yesterday. Pt is currently on 2 oxycodone every 4 hours. - History of Current Complaint Chief Complaint: EDShoulderClavicleInj Stated Complaint: LEFT SHOULDER INJURY Time Seen by Provider: 01/19/18 07:15 Hx Obtained From: Patient, Family/Hemotherapist - Mechanism Of Injury: Other - attempting to get out of bed Onset/Duration: Started Hours Ago, Still Present Timing: Lasting Hours Severity Initially: Severe Severity Currently: Moderate - 3 or 4 out of 10 Pain Location: Shoulder - left Aggravating Factor(s): Movement Alleviating Factor(s): Rest Associated Signs & Symptoms: Negative: Swelling, Fever, Weakness, Numbness/ Tingling, Neck Pain - Allergies/Home Medications Allergies/Adverse Reactions: Allergies Allergy/AdvReac Type Severity Reaction Status Date / Time No Known Allergies Allergy Verified 01/17/18 02:33 PMH/Surg Hx/FS Hx/Imm Hx Endocrine/Hematology History: Denies: Hx Diabetes Cardiovascular History: Denies: Hx Hypertension History: Denies: Hx Renal Disease Sensory History: Denies: Hx Contacts or Glasses, Hx Hearing Aid Opthamlomology History: Denies: Hx Contacts or Glasses - Cancer History Cancer Type, Location and Year: current visit - liver, lymph mets Infectious Disease History: No Infectious Disease History: Denies: Traveled Outside the [place] in Last 30 Days - Family History Known Family History: Negative: Diabetes - Social History Alcohol Use: None Substance Use Type: Reports: Marijuana Substance Use Comment - Amount & Last Used: rarely Smoking Status (MU): Heavy Every Day Tobacco Smoker Type: Cigarettes Amount Used/How Often: 1 1/2 ppd Review of Systems Negative: Fever, Chills Cardiovascular: Negative Respiratory: Negative Gastrointestinal: Negative Musculoskeletal: Other - left shoulder pain Neurological: Negative All Other Systems Reviewed And Are Negative: Yes Physical Exam - Summary Physical Exam Summary: VITAL SIGNS: Reviewed. GENERAL: Patient is a well-developed and nourished male who is lying comfortable in the stretcher. Patient is not in any acute respiratory distress. HEAD AND FACE: No signs of trauma. No ecchymosis, hematomas or skull depressions. No sinus tenderness. EYES: PERRLA, EOMI x 2, No injected conjunctiva, no nystagmus. EARS: Hearing grossly intact. Ear canals and tympanic membranes are within normal limits. MOUTH: Oropharynx within normal limits. NECK: Supple, trachea is midline, no adenopathy, no JVD, no carotid bruit, no c- spine tenderness, neck with full ROM. CHEST: Symmetric, no tenderness at palpation LUNGS: Clear to auscultation bilaterally. No wheezing or crackles. CVS: Regular rate and rhythm, S1 and S2 present, no murmurs or gallops appreciated. ABDOMEN: Soft, non-tender. No signs of distention. No rebound no guarding, and no masses palpated. Bowel sounds are normal. EXTREMITIES: no edema, no cyanosis or clubbing. LUE: Left shoulder tenderness with decreased ROM. No hematoma. No deformity. Good capillary refill. Neurovascular intact. NEURO: Alert and oriented x 3. No acute neurological deficits. Speech is normal and follows commands. SKIN: Dry and warm Triage Information Reviewed: Yes Vital Signs On Initial Exam: Initial Vitals Temp Pulse Resp BP Pulse Ox 96.9 F 86 20 143/84 96 01/19/18 06:19 01/19/18 06:19 01/19/18 06:19 01/19/18 06:19 01/19/18 06:19 Vital Signs Reviewed: Yes Diagnostics - Vital Signs Vital Signs Temp Pulse Resp BP Pulse Ox 01/19/18 06:19 96.9 F 86 20 143/84 96 - Laboratory Lab Statement: Any lab studies that have been ordered have been reviewed, and results considered in the medical decision making process. - Radiology Left shoulder XR Xray Interpretation: Positive (See Comments) - IMPRESSION: Findings suspicious for a nondisplaced pathologic fracture of the acromion process which is not well -defined on this study. Recommend a CT of the shoulder for further evaluation. Dr. Vinson has reviewed this radiology report. Radiology Interpretation Completed By: Radiologist - CT Left upper extremity CT CT Interpretation: Positive (See Comments) - IMPRESSION: 1. Transverse nondisplaced pathologic fracture of the acromion process. 2. Multiple small pulmonary nodules consistent with metastatic disease. 3. Small left lower lobe infiltrate, unchanged. Dr. Vinson has reviewed this radiology report. CT Interpretation Completed By: Radiologist Re-Evaluation - Re-Evaluation First Eval Re-Evaluation Time: 09:46 Comment: I discussed the XR and CT results with the pt. Pt will be discharged home. Course/Dx - Course Assessment/Plan: This pt is a 47 y/o male, accompanied by his , presenting to [facility] c/o left shoulder pain since this morning. Pt states he was attempting to get out of bed this morning when he reached out and hear a loud pop in his left shoulder. He currently rates his pain 3 or 4 out of 10 in severity after oxycodone. His pain is aggravated with movement and alleviated with rest. Pt has been recently diagnosed with liver cancer and is currently being followed up by Dr. Reoblledo, oncologist. Per , pt was admitted to [facility] for severe pain and was discharged yesterday. Pt is currently on 2 oxycodone every 4 hours. Left shoulder XR shows findings suspicious for a nondisplaced pathologic fracture of the acromion process which is not well-defined on this study. Recommend a CT of the shoulder for further evaluation. Therefore a CT was ordered. Left upper extremity CT reveals 1. Transverse nondisplaced pathologic fracture of the acromion process. 2. Multiple small pulmonary nodules consistent with metastatic disease. 3. Small left lower lobe infiltrate, unchanged. Therefore he will be discharged to home with follow up from Dr. Trejo, orthopedist. Pt was placed in a shoulder sling. I discussed all the findings and test results with the patient. All questions were answered to patient satisfaction. There were no further complaints or concerns. He is instructed to return to the ED for any worsening or new symptoms. Pt is hemodynamically stable, alert and oriented x3. - Diagnoses Provider Diagnoses: Closed fracture of acromion of scapula Discharge - Sign-Out/Discharge Documenting (check all that apply): Discharge - discharge to home - Discharge Plan Condition: Stable Disposition: HOME Patient Education Materials: Scapular Fracture (ED) Referrals: Yaya Mcgregor MD [Primary Care Provider] - Herrera Trejo MD [Medical Doctor] - Additional Instructions: Please follow up with Dr. Trejo, orthopedics. RETURN TO THE ED FOR ANY NEW OR WORSENING SYMPTOMS. The documentation as recorded by the Brian espinal Angela accurately reflects the service I personally performed and the decisions made by Karel orourke Walter, MD.
== END 2018-01-19 10:01 | disposition home or self-care (01) ==
LOC: ED 06:18
DX: M84.412A Pathological fracture, left shoulder, initial encounter for fracture (principal); R91.1 Solitary pulmonary nodule; R91.8 Other nonspecific abnormal finding of lung field; C22.9 Malignant neoplasm of liver, not specified as primary or secondary; F17.210 Nicotine dependence, cigarettes, uncomplicated
CPT/HCPCS: 99282

== ENCOUNTER 2018-02-02 15:34 | Inpatient (IN) | payer OTHER ==
[2018-02-02] MEDS ORDERED: Ondansetron INJ* 2 MG/ML VIAL IV PRN (15:37)
[2018-02-02] MEDS ORDERED: Ondansetron TAB* 4 MG PO PRN (15:45)
[2018-02-02] MEDS ORDERED: Prochlorperazine TAB* 10 MG PO PRN (15:45)
[2018-02-02] MEDS ORDERED: fentaNYL PATCH 75 MCG/HR* 75 MCG TRANSDERM SCH (16:00)
[2018-02-02] MEDS ORDERED: Enoxaparin(*) 100 MG/ML SYR SUBCUT SCH (17:00)
[2018-02-02] MEDS: Clotrimazole TROCHE* 10 MG TROCHE PO SCH ×2 (17:54→20:24)
[2018-02-02] MEDS: fentaNYL Patch Check Q Shift 1 NOTE SCH (18:39)
--- NOTE | 2018-02-02 19:53 | RAD ---
Indication: Biliary system. Real-time sonography of the right upper quadrant was performed. Comparison previous CT scan. The liver is enlarged measuring 18.8 cm in length. There are multiple hypoechoic lesions throughout the liver. When compared to previous exam of January 26, 2018 the size and number to account appear to be significant change. The gallbladder demonstrates thickened gallbladder wall measures or millimeters. Underlying mass or sludge should be considered. Gallbladder wall thickening measures 4 mm. The common duct measures 6 mm. There is intrahepatic ductal dilatation in the left lobe liver. Right kidney measures 12.9 x 5.1 x 6.7 cm no hydronephrosis IMPRESSION: Multiple hepatic lesions consistent with metastatic disease. Left lobe intrahepatic ductal dilatation.
[2018-02-02] MEDS: Morphine TAB Extended Release (*) 30 MG TAB.ER PO SCH (20:24)
[2018-02-03 05:38] LABS: INR 1.37 (0.77-1.02)
[2018-02-03 05:42] LABS: Hematocrit 33 % (42-52); Hemoglobin 11.5 g/dl (14.0-18.0); Mean Corpuscular HGB Conc 34 g/dl (31-36); Mean Corpuscular Hemoglobin 28 pg (27-31); Mean Corpuscular Volume 81 fL (80-94); Red Blood Count 4.13 10^6/ul (4.0-5.4); Red Cell Distribution Width 15 % (10.5-15); White Blood Count 13.5 10^3/ul (3.5-10.8)
[2018-02-03 05:51] LABS: EGFR Non-African American 122.9 (>60)
[2018-02-03 06:13] LABS: Monocytes % 10 % (0-7)
[2018-02-03 06:15] LABS: Platelet Count 16 10^3/ul (150-450)
[2018-02-03] MEDS ORDERED: KCL 20 MEQ/100 ML IVPREMIX* 20 MEQ/100 ML BAG IV SCH (08:00)
[2018-02-03] MEDS ORDERED: cefTRIAXone(*) 1 GM in NS 0.9% 50 ML* 50 ML IVPB ONE (08:00)
[2018-02-03] MEDS ORDERED: Potassium Chloride IV* 60 MEQ in NS 0.9% 500 ML* 500 ML IVPB ONE (08:00)
--- NOTE | 2018-02-03 09:17 | RAD ---
HISTORY: Right hip pain, history of bone cancer COMPARISONS: None VIEWS: 3, Frontal view of the pelvis with frontal and frog-leg views of the right hip FINDINGS: BONE DENSITY: Normal. BONES: There is a cam deformity of the right femoral neck. JOINTS: There is mild osteoporosis of the hips bilaterally. ALIGNMENT: There is no dislocation. SOFT TISSUES: Unremarkable. 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
[2018-02-03] MEDS: Clotrimazole TROCHE* 10 MG TROCHE PO SCH ×4 (13:56→20:37)
[2018-02-03] MEDS: Morphine TAB Extended Release (*) 30 MG TAB.ER PO SCH ×2 (13:57→20:37)
[2018-02-03] MEDS ORDERED: fentaNYL* 50 MCG/ML 5 ML VIAL (250 MCG VIAL) ONE (14:20)
[2018-02-03] MEDS ORDERED: Midazolam* 1 MG/ML 10 ML VIAL (10 MG) ONE (14:20)
[2018-02-03] MEDS: fentaNYL Patch Check Q Shift 1 NOTE SCH ×2 (14:25→20:42)
[2018-02-03] MEDS ORDERED: Morphine VIAL* 4 MG/ML VIAL (1 ml vial) IV ONE (14:30)
[2018-02-03] MEDS ORDERED: LORazepam INJ* 2 MG/ML 1 ML VIAL IV PUSH ONE (15:05)
--- NOTE | 2018-02-03 16:40 | PN ---
Progress Note - Progress Note Date of Service: 02/03/18 SOAP: Subjective: [Patient went for percutaneous biliary drain placement this am with Dr Rodriguez, which was unfortunately unsuccessful. Despite adequate doses of sedation patient was extremely uncomfortable during the procedure and was quite emotional when it was unsuccessful.] Objective: [ Clotrimazole (Mycelex Sarah*) 10 mg PO QID [facility] Last Admin: 02/03/18 15:36 Dose: 10 mg Fentanyl (Duragesic Patch 75 Mcg/Hr*) 75 mcg TRANSDERM Q72H [facility] Last Admin: 02/02/18 17:53 Dose: 75 mcg Lactulose (Lactulose*) 30 ml PO TID PRN PRN Reason: CONSTIPATION Morphine Sulfate (Ms Contin(*)) 60 mg PO BID [facility] Last Admin: 02/03/18 13:57 Dose: Not Given Ondansetron HCl (Zofran Inj*) 4 mg IV Q4H PRN PRN Reason: NAUSEA/VOMITING Ondansetron HCl (Zofran Tab*) 4 mg PO Q4HR PRN PRN Reason: NAUSEA Pharmacy Profile Note (Fentanyl Patch Check Q Shift) 1 note N/A 0700,[id number] [facility] Last Admin: 02/03/18 14:25 Dose: 1 note Prochlorperazine (Compazine Tab*) 10 mg PO Q6H PRN PRN Reason: NAUSEA Last Admin: 02/02/18 18:16 Dose: 10 mg Laboratory Results - last 24 hr 02/03/18 02/03/18 02/03/18 05:07 05:07 05:07 WBC 13.5 H RBC 4.13 Hgb 11.5 L Hct 33 L MCV 81 MCH 28 MCHC 34 RDW 15 Plt Count 16 L* D MPV Not Reportable Neut % (Auto) Not Reportable Lymph % (Auto) Not Reportable Karnes % (Auto) Not Reportable Eos % (Auto) Not Reportable Baso % (Auto) Not Reportable Absolute Neuts (auto) Not Reportable Absolute Lymphs (auto) Not Reportable Absolute Monos (auto) Not Reportable Absolute Eos (auto) Not Reportable Absolute Basos (auto) Not Reportable Absolute Nucleated RBC Not Reportable Immature Gran % 3 Neutrophils % 61 Band Neutrophils % 2 Lymphocytes % 14 L Monocytes % 10 H Eosinophils % 12 H Basophils % 0 Myelocytes % 1 Nucleated RBC % Not Reportable Abs Neuts (Manual) 8.2 H Abs Lymphs (Manual) 1.9 Abs Monocytes (Manual) 1.4 H Absolute Eos (Manual) 1.6 H Abs Basophils (Manual) 0 Normal RBC Morphology Normal INR (Anticoag Therapy) 1.37 H Sodium 132 L Potassium 2.9 L Chloride 97 L Carbon Dioxide 26 Anion Gap 9 BUN 25 H Creatinine 0.69 Est GFR ( Amer) 158.1 Est GFR (Non-Af Amer) 122.9 BUN/Creatinine Ratio 36.2 H Glucose 101 H Calcium 6.9 L Magnesium 2.0 Total Bilirubin 17.90 H* AST 72 H ALT 216 H Alkaline Phosphatase 645 H Total Protein 4.9 L Albumin 2.5 L Globulin 2.4 Albumin/Globulin Ratio 1.0 Blood Type 02/03/18 05:07 WBC RBC Hgb Hct MCV MCH MCHC RDW Plt Count MPV Neut % (Auto) Lymph % (Auto) Karnes % (Auto) Eos % (Auto) Baso % (Auto) Absolute Neuts (auto) Absolute Lymphs (auto) Absolute Monos (auto) Absolute Eos (auto) Absolute Basos (auto) Absolute Nucleated RBC Immature Gran % Neutrophils % Band Neutrophils % Lymphocytes % Monocytes % Eosinophils % Basophils % Myelocytes % Nucleated RBC % Abs Neuts (Manual) Abs Lymphs (Manual) Abs Monocytes (Manual) Absolute Eos (Manual) Abs Basophils (Manual) Normal RBC Morphology INR (Anticoag Therapy) Sodium Potassium Chloride Carbon Dioxide Anion Gap BUN Creatinine Est GFR ( Amer) Est GFR (Non-Af Amer) BUN/Creatinine Ratio Glucose Calcium Magnesium Total Bilirubin AST ALT Alkaline Phosphatase Total Protein Albumin Globulin Albumin/Globulin Ratio Blood Type O Positive Vital Signs: Temp Pulse Resp BP Pulse Ox 98.6 F 103 16 128/73 98 02/03/18 15:17 02/03/18 15:17 02/03/18 15:36 02/03/18 15:17 02/03/18 15:17 Exam: Gen: Emotionally distraught 47 yo male accompanied by his and daughter Eyes: scleral icterus Skin: jaundice Remainder of exam was deferred at this time] Assessment: [This is a 47 yo male with a relatively new diagnosis of metastatic biliary carcinoma who has received one cycle of gemcitabine/cisplatin and presented with acute biliary obstruction and markedly elevated bilirubin. Dr Olivas was consulted for ERCP who did not feel he would be successful stenting and percutaneous drainage was attempted by IR which unfortunately was unsuccessful.] Plan: [1. Metastatic biliary carcinoma with pathologic L humerus fx and new biliary obstruction - patient is unsure if he wants to pursue further therapy - offered transfer to tertiary center for endoscopic biliary stenting which he declined at this time - he is contemplating palliative options - will focus on managing his pain overnight and readdress plan of care in am 2. Thrombocytopenia - plt count 16K - likely due to recent treatment and liver dysfunction - received 1U platelets with percutaneous drainage today - no signs of bleeding - lovenox held 3. LLE DVT - Lovenox held for thrombocytopenia - recommended IVC filter which patient is declining at this time Dispo: Reassess willingness to proceed with intervention v transition to palliative measures tomorrow am]
[2018-02-03] MEDS ORDERED: Morphine VIAL* 4 MG/ML VIAL (1 ml vial) IV PRN (17:12)
[2018-02-03 21:03] LABS: Mean Platelet Volume 9.5 um3 (7.4-10.4); Platelet Count 30 10^3/ul (150-450)
[2018-02-04 02:48] VITALS: BP 120/69
[2018-02-04 05:38] LABS: Hematocrit 32 % (42-52); Mean Corpuscular HGB Conc 34 g/dl (31-36); Mean Corpuscular Hemoglobin 28 pg (27-31); Mean Corpuscular Volume 81 fL (80-94); Mean Platelet Volume 9.7 um3 (7.4-10.4); Platelet Count 33 10^3/ul (150-450); Red Blood Count 3.96 10^6/ul (4.0-5.4); Red Cell Distribution Width 15 % (10.5-15); White Blood Count 12.1 10^3/ul (3.5-10.8)
[2018-02-04 05:41] LABS: EGFR Non-African American 111.6 (>60)
[2018-02-04 05:56] LABS: Monocytes % 8 % (0-7)
[2018-02-04] MEDS: fentaNYL Patch Check Q Shift 1 NOTE SCH (07:31)
--- NOTE | 2018-02-04 17:28 | RAD ---
CPT II Codes: G9500 (Attempted) PERCUTANEOUS BILIARY DRAIN PLACEMENT WITH ULTRASOUND AND FLUOROSCOPIC GUIDANCE INDICATION: Hyperbilirubinemia due to biliary obstruction caused by neoplasm of the bile duct COMPARISON: CT abdomen February 02, 2018 and ultrasound the liver February 02, 2018 FLUOROSCOPY TIME: 2 minutes and 4 seconds ANESTHESIA AND OTHER PERIOPERATIVE MEDICATIONS: 1% lidocaine locally. Conscious sedation was provided with the combination of IV fentanyl and Versed. Continuous cardiopulmonary monitoring was performed by the IR nurse and Dr. Rodriguez. Conscious sedation time: Timeout: 1236 hours End procedure time: 1325 hours Total conscious sedation time: 39 minutes PROCEDURE NOTE AND IMAGING FINDINGS: The benefits and risks of the procedure explained to the patient. The patient consented to the procedure. Preliminary sonographic exam demonstrates pathologic dilatation of the bile ducts in the left lobe of the liver. Color flow analysis does not show any pulsating arteries in the intended percutaneous catheter drainage tract or in the immediate vicinity of the planned drain placement. The patient was brought to the fluoroscopy suite and positioned in the supine position. A formal time out was preformed with the technologist and nursing staff. The intended percutaneous biliary drain site was prepped and draped in the usual sterile fashion. The patient was given intravenous conscious sedation and local anesthesia with 1% lidocaine. Utilizing a live ultrasound guidance a microcatheter needle was advanced into the left lobe of the liver attempting to place the needle tip in a dilated biliary radicle. The wire was advanced and the sheath was advanced over the wire. Unfortunately contrast injection revealed cannulation of the left portal venous system not the biliary system. The sheath was removed. Four additional attempts were made to cannulate the dilated biliary system. At one point during the procedure the needle tip is seen in the widely dilated biliary duct, unfortunately the wire could not be advanced for placement of the drain. Finally the procedure was aborted. The site was dressed with a sterile dressing and the patient returned to his inpatient room in stable condition. IMPRESSION: Unsuccessful attempt to place a percutaneous biliary drain utilizing ultrasound and fluoroscopic guidance.
== END 2018-02-04 07:00 | disposition left against medical advice (07) | DRG 264 ==
LOC: SSU 17:03
PROVIDERS: ADMIT Internal Medicine Hematology & Oncology; ATTEND Internal Medicine Hematology & Oncology
PROC: 30233R1 Transfusion of Nonautologous Platelets into Peripheral Vein, Percutaneous Approach (ICD-10-PCS; principal; 2018-02-04)
PROC: 0FJB3ZZ Inspection of Hepatobiliary Duct, Percutaneous Approach (ICD-10-PCS; 2018-02-04)
DX: K83.1 Obstruction of bile duct (principal); B37.0 Candidal stomatitis; C24.9 Malignant neoplasm of biliary tract, unspecified; I82.402 Acute embolism and thrombosis of unspecified deep veins of left lower extremity; C79.9 Secondary malignant neoplasm of unspecified site; D69.6 Thrombocytopenia, unspecified; Z92.21 Personal history of antineoplastic chemotherapy; Z83.2 Family history of diseases of the blood and blood-forming organs and certain disorders involving the immune mechanism
CPT/HCPCS: 36415; 47533; 76705; 80053; 83735; 85025; 85049; 85610; 86900; 86901; 99156; 99157; 99222; 99233; A9270-GY; J0696; J1650; J2060; J2250; J2270; J3010; J3480; P9035; Q0164; Q9967